=== PATIENT | female | born 1990 | race Caucasian/White ===

== ENCOUNTER 2017-12-26 13:01 | Emergency (ER) | payer BC ==
[2017-12-26 13:10] VITALS: BP 115/68
[2017-12-26] MEDS ORDERED: HYDROmorphone 0.5 MG/0.5 ML SYRINGE IVPUSH STA (13:23)
[2017-12-26] MEDS ORDERED: Ondansetron 4 MG/2 ML SDV IVPUSH ONE (13:23)
[2017-12-26] MEDS ORDERED: Sodium Chloride 0.9% 1,000 ML IV SCH (13:30)
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
[2017-12-26] MEDS ORDERED: Ibuprofen 600 MG Tab PO ONE (14:22)
[2017-12-26] MEDS ORDERED: Orphenadrine 100 MG Tab.ER PO STA (14:22)
== END 2017-12-26 14:50 | disposition home or self-care (01) ==
LOC: JD.ED 13:01
DX: M62.830 Muscle spasm of back (principal); F17.210 Nicotine dependence, cigarettes, uncomplicated; Z88.2 Allergy status to sulfonamides; Z88.1 Allergy status to other antibiotic agents
CPT/HCPCS: 81001; 81025; 96361; 96374; 96375; 99284; A9270; J1170; J2405; J7040

== ENCOUNTER 2020-09-16 04:35 | Observation (INO) | payer BC ==
[2020-09-16] MEDS ORDERED: Metoclopramide 10 MG/2 ML SDV IVPUSH ONE (04:56)
[2020-09-16] MEDS ORDERED: HYDROmorphone 1 MG/ML Syringe IVPUSH ONE (04:56)
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
[2020-09-16] MEDS ORDERED: Dextrose 5%-0.9% NaCl 1,000 ML IV SCH (05:00)
[2020-09-16] MEDS ORDERED: HYDROmorphone 0.5 MG/0.5 ML Syringe IVPUSH ONE (05:28)
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
[2020-09-16] MEDS ORDERED: Ibuprofen 400 MG Tab PO PRN (07:17)
[2020-09-16] MEDS ORDERED: Acetaminophen/oxyCODONE 325-5 MG Tab PO PRN ×2 (07:17)
[2020-09-16] MEDS ORDERED: HYDROmorphone 0.5 MG/0.5 ML Syringe IVPUSH PRN (07:17)
[2020-09-16] MEDS ORDERED: Ondansetron 4 MG Tab.DIS PO PRN (07:22)
--- NOTE | 2020-09-16 08:16 | US ---
Pelvic ultrasound: Multiple real-time images were obtained transvaginally. Comparison: Previous CT abdomen and pelvis exam performed earlier on the same day. Findings: Moderate amount of free fluid is seen within the pelvis. Uterus is anteverted. Several nabothian cysts are noted. Endometrial thickness is about 1.3 cm. Right ovary shows an irregular cyst measuring 2.9 cm which most likely represents a leaking collapsing cyst. Left ovary is unremarkable. Measurements: Uterus: Length 9.3 cm, AP height 3.7 cm, transverse width 4.8 cm Right ovary: 4.7 x 2.9 x 4.5 cm Left ovary: 4.0 x 2.3 x 2.4 cm Impression: 1. Moderate amount of free fluid within the pelvis. This free fluid is most likely due to a collapsing cyst within the right ovary. This cyst is irregular and measures about 2.9 cm in size. 2. Incidental nabothian cysts. 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
--- NOTE | 2020-09-16 08:19 | CT ---
CT abdomen and pelvis Technique: Multiple axial sections were obtained from above the dome of the diaphragm inferiorly through the pubic symphysis. Intravenous and oral contrast was not utilized. Reconstructed coronal and sagittal images were also obtained. Comparison: Prior CT abdomen and pelvis study of 10/11/13. Findings: There is free fluid seen within the pelvis. Minimal cystic change is noted within both ovaries which is most likely physiologic. Appendix is seen which is normal. Visualized lung bases showed nothing acute. Liver contains no focal abnormality. Spleen appears within normal limits. Adrenal glands show no nodule. No discrete abnormality is appreciated within the pancreas. Gallbladder contains no calcified gallstones. Right kidney shows a very small nonobstructing stone measuring less than 2 mm compatible with nonobstructing calculus. Kidneys show no ureteral dilatation or ureteral stone. Abdominal aorta shows no aneurysm. No retroperitoneal adenopathy or mesenteric abnormalities are appreciated. No bowel dilatation is seen. Bone window settings were reviewed which appear within normal limits for the patient's age. Impression: 1. Bilateral ovarian cyst most likely physiologic. Free fluid within the pelvis is noted. 2. Small less than 2 mm nonobstructing stone within the right kidney. No ureteral dilatation or ureteral stone is seen. 3. No other acute abnormality is seen. 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
[2020-09-16 12:07] VITALS: BP 100/44; PULSE 59
--- NOTE | 2020-09-16 15:41 | PCM.DCSUM1 ---
Discharge Summary - Hospital Course Free Text/Narrative:: 30 year old well known to me from care within her pregnancies presents to ER with severe abdominal/pelvic pain that started early this morning. She had the feeling of needing to void but was unable to x2. When pain did not improve she finally decided to come to the ER. In the ER she was given diluadid which helped somewhat with pain. CT scan without contrast was done for concern of renal lithiasis however only fluid in pelvis was found and and ultrasound confirmed that. Diagnosis: Stroke: No - Discharge Data Discharge Date: 09/16/20 Discharge Disposition: Home, Self-Care 01 Condition: Good - Referral to Home Health Primary Care Physician: PCP None - Discharge Diagnosis/Problem(s) (1) Acute abdominal pain SNOMED Code(s): 569069287 ICD Code: R10.9 - UNSPECIFIED ABDOMINAL PAIN Status: Acute Current Visit: Yes (2) Ovarian cyst SNOMED Code(s): 12574212 ICD Code: N83.209 - UNSPECIFIED OVARIAN CYST, UNSPECIFIED SIDE Status: Acute Current Visit: Yes (3) Ruptured ovarian cyst SNOMED Code(s): 66929030 ICD Code: N83.209 - UNSPECIFIED OVARIAN CYST, UNSPECIFIED SIDE Status: Acute Current Visit: Yes - Patient Summary/Data Complications: None Consults: None Hospital Course: Krystal Gonzalez was seen in the emergency department early in the morning of 09/16/2020 due to sudden onset and severe abdominal and pelvic pain. She had a CT scan done that showed fluid in the abdomen and pelvis with possible ruptured ovarian cyst. There was no evidence of renal lithiasis. She had a transvaginal ultrasound that showed a collapsed ovarian cyst with fluid around the uterus and pelvis. Patient was given Dilaudid in the emergency room that did not control her pain. She was kept for observation for pain control and monitoring of her symptoms. Patient was transferred to the [facility] and was able to eat breakfast. After breakfast she had a Percocet and this was able to control her pain. She states that after being monitored for approximately 6 hours after her Percocet her pain is very minimal. She is able to meet all of her daily activity requirements. She is able to get up and walk around with minimal difficulty. She is able to urinate without difficulty. She is tolerating regular diet without any nausea or vomiting. She states that her pain is minimal at this point. On exam her abdomen was mild to moderate tenderness in the left lower quadrant with mild tenderness in the right lower quadrant and suprapubic area without any rebound or guarding. Patient was felt to be stable at this time and was offered discharge home and she desired to be discharged home. Patient was discharged home in the afternoon of HD #1. - Patient Instructions Diet: Regular Diet as Tolerated Activity: Apply Ice, As Tolerated Driving: Do Not Drive (While taking narcotic medications are having significant pain) Showering/Bathing: May Shower Notify Provider of: Fever, Increased Pain, Swelling and Redness, Nausea and/or Vomiting - Discharge Plan *PRESCRIPTION DRUG MONITORING PROGRAM REVIEWED*: Yes *COPY OF PRESCRIPTION DRUG MONITORING REPORT IN PATIENT [place]: No Prescriptions/Med Rec: Docusate Sodium [Colace] 100 mg PO BID #60 capsule Ibuprofen 600 mg PO Q6H PRN #60 tablet PRN Reason: Pain Acetaminophen/oxyCODONE [Percocet 325-5 MG] 1 - 2 tab PO Q6H PRN #20 tablet PRN Reason: Pain Home Medications: Home Meds Acetaminophen/oxyCODONE [Percocet 325-5 MG] 1 - 2 tab PO Q6H PRN #20 tablet 09/16/20 [Rx] Docusate Sodium [Colace] 100 mg PO BID #60 capsule 09/16/20 [Rx] Ibuprofen 600 mg PO Q6H PRN #60 tablet 09/16/20 [Rx] Patient Handouts: Steps to Quit Smoking Forms: ED Department Discharge Referrals: Susan Mccall MD [Physician] - (Follow-up in 1 to 2 weeks for follow-up after being seen in the emergency room for ruptured ovarian cyst.) - Discharge Summary/Plan Comment DC Time >30 min.: No - Patient Data Vitals - Most Recent: Last Vital Signs Temp 36.7 C 09/16/20 11:43 Pulse 59 L 09/16/20 11:43 Resp 20 09/16/20 11:43 BP 100/44 L 09/16/20 11:43 Pulse Ox 99 09/16/20 11:43 Weight - Most Recent: 83.552 kg Lab Results - Last 24 hrs: Laboratory Results - last 24 hr 09/16/20 09/16/20 09/16/20 Range/Units 04:55 04:55 04:55 WBC 11.98 H (3.98-10.04) K/mm3 RBC 5.03 (3.98-5.22) M/mm3 Hgb 14.7 (11.2-15.7) gm/dl Hct 43.7 (34.1-44.9) % MCV 86.9 (79.4-94.8) fl MCH 29.2 (25.6-32.2) pg MCHC 33.6 (32.2-35.5) g/dl RDW Std Deviation 44.3 (36.4-46.3) fL Plt Count 237 (182-369) K/mm3 MPV 10.2 (9.4-12.3) fl Neut % (Auto) 65.2 (34.0-71.1) % Lymph % (Auto) 21.9 (19.3-51.7) % [place] % (Auto) 9.4 (4.7-12.5) % Eos % (Auto) 2.8 (0.7-5.8) Baso % (Auto) 0.5 (0.1-1.2) % Neut # (Auto) 7.82 H (1.56-6.13) K/mm3 Lymph # (Auto) 2.62 (1.18-3.74) K/mm3 [place] # (Auto) 1.13 H (0.24-0.36) K/mm3 Eos # (Auto) 0.33 (0.04-0.36) K/mm3 Baso # (Auto) 0.06 (0.01-0.08) K/mm3 Manual Slide Review Normal smear Sodium 143 (136-145) mEq/L Potassium 4.1 (3.5-5.1) mEq/L Chloride 107 (98-107) mEq/L Carbon Dioxide 23 (21-32) mEq/L Anion Gap 17.1 H (5-15) BUN 13 (7-18) mg/dL Creatinine 0.8 (0.55-1.02) mg/dL Est Cr Clr Drug Dosing TNP Estimated GFR (MDRD) > 60 (>60) mL/min BUN/Creatinine Ratio 16.3 (14-18) Glucose 99 (74-106) mg/dL Calcium 8.4 L (8.5-10.1) mg/dL Total Bilirubin 0.3 (0.2-1.0) mg/dL AST 14 L (15-37) U/L ALT 23 (14-59) U/L Alkaline Phosphatase 80 (46-116) U/L Total Protein 6.6 (6.4-8.2) g/dl Albumin 3.5 (3.4-5.0) g/dl Globulin 3.1 gm/dL Albumin/Globulin Ratio 1.1 (1-2) HCG, Quant < 1.0 mIU/mL Urine Color (Yellow) Urine Appearance (Clear) Urine pH (5.0-8.0) Ur Specific [place] (1.005-1.030) Urine Protein (Negative) Urine Glucose (UA) (Negative) Urine Ketones (Negative) Urine Occult Blood (Negative) Urine Nitrite (Negative) Urine Bilirubin (Negative) Urine Urobilinogen (0.2-1.0) Ur Leukocyte Esterase (Negative) Urine RBC (0-5) /hpf Urine WBC (0-5) /hpf Ur Squamous Epith Cells (0-5) /hpf Urine Bacteria (FEW) /hpf Urine Mucus (FEW) /hpf SARS-CoV-2 RNA (KRYSTAL) (NEGATIVE) Blood Type Gel Antibody Screen 09/16/20 09/16/20 09/16/20 Range/Units 04:55 05:15 05:38 WBC (3.98-10.04) K/mm3 RBC (3.98-5.22) M/mm3 Hgb (11.2-15.7) gm/dl Hct (34.1-44.9) % MCV (79.4-94.8) fl MCH (25.6-32.2) pg MCHC (32.2-35.5) g/dl RDW Std Deviation (36.4-46.3) fL Plt Count (182-369) K/mm3 MPV (9.4-12.3) fl Neut % (Auto) (34.0-71.1) % Lymph % (Auto) (19.3-51.7) % [place] % (Auto) (4.7-12.5) % Eos % (Auto) (0.7-5.8) Baso % (Auto) (0.1-1.2) % Neut # (Auto) (1.56-6.13) K/mm3 Lymph # (Auto) (1.18-3.74) K/mm3 [place] # (Auto) (0.24-0.36) K/mm3 Eos # (Auto) (0.04-0.36) K/mm3 Baso # (Auto) (0.01-0.08) K/mm3 Manual Slide Review Sodium (136-145) mEq/L Potassium (3.5-5.1) mEq/L Chloride (98-107) mEq/L Carbon Dioxide (21-32) mEq/L Anion Gap (5-15) BUN (7-18) mg/dL Creatinine (0.55-1.02) mg/dL Est Cr Clr Drug Dosing Estimated GFR (MDRD) (>60) mL/min BUN/Creatinine Ratio (14-18) Glucose (74-106) mg/dL Calcium (8.5-10.1) mg/dL Total Bilirubin (0.2-1.0) mg/dL AST (15-37) U/L ALT (14-59) U/L Alkaline Phosphatase (46-116) U/L Total Protein (6.4-8.2) g/dl Albumin (3.4-5.0) g/dl Globulin gm/dL Albumin/Globulin Ratio (1-2) HCG, Quant mIU/mL Urine Color Yellow (Yellow) Urine Appearance Slt cloudy H (Clear) Urine pH 6.0 (5.0-8.0) Ur Specific [place] > or = 1.030 (1.005-1.030) Urine Protein Negative (Negative) Urine Glucose (UA) Negative (Negative) Urine Ketones Negative (Negative) Urine Occult Blood Negative (Negative) Urine Nitrite Negative (Negative) Urine Bilirubin Negative (Negative) Urine Urobilinogen 0.2 (0.2-1.0) Ur Leukocyte Esterase Negative (Negative) Urine RBC 0-5 (0-5) /hpf Urine WBC 5-10 H (0-5) /hpf Ur Squamous Epith Cells 0-5 (0-5) /hpf Urine Bacteria Few (FEW) /hpf Urine Mucus Few (FEW) /hpf SARS-CoV-2 RNA (KRYSTAL) Negative (NEGATIVE) Blood Type AB POSITIVE Gel Antibody Screen Negative Med Orders - Current: Current Medications Hydromorphone HCl (Dilaudid) 0.2 mg IVPUSH Q2H PRN PRN Reason: Pain (severe 7-10) Dextrose/Sodium Chloride (Dextrose 5%-Normal Saline) 1,000 mls @ 150 mls/hr IV ASDIRECTED [facility] Last Admin: 09/16/20 05:02 Dose: 150 mls/hr Documented by: Ibuprofen (Motrin) 600 mg PO Q6H PRN PRN Reason: Pain (mild 1-3) Ondansetron HCl (Zofran Odt) 4 mg PO Q6H PRN PRN Reason: Nausea/Vomiting Oxycodone/Acetaminophen (Percocet 325-5 Mg) 1 tab PO Q4H PRN PRN Reason: Pain (moderate 4-6) Last Admin: 09/16/20 12:08 Dose: 1 tab Documented by: Oxycodone/Acetaminophen (Percocet 325-5 Mg) 2 tab PO Q4H PRN PRN Reason: Pain (severe 7-10) Discontinued Medications Hydromorphone HCl (Dilaudid) 1 mg IVPUSH ONETIME ONE Stop: 09/16/20 04:57 Last Admin: 09/16/20 05:02 Dose: 1 mg Documented by: Hydromorphone HCl (Dilaudid) 0.5 mg IVPUSH ONETIME ONE Stop: 09/16/20 05:29 Last Admin: 09/16/20 06:03 Dose: 0.5 mg Documented by: Metoclopramide HCl (Reglan) 7.5 mg IVPUSH ONETIME ONE Stop: 09/16/20 04:57 Last Admin: 09/16/20 05:02 Dose: 7.5 mg Documented by:
== END 2020-09-16 16:05 | disposition home or self-care (01) ==
LOC: JD.ED 04:35 → JD.MS 07:18
PROVIDERS: ADMIT Obstetrics & Gynecology; ATTEND Obstetrics & Gynecology
DX: N83.209 Unspecified ovarian cyst, unspecified side (principal); F17.210 Nicotine dependence, cigarettes, uncomplicated; Z20.822 Contact with and (suspected) exposure to COVID-19; Z79.899 Other long term (current) drug therapy; Z88.8 Allergy status to other drugs, medicaments and biological substances; Z98.890 Other specified postprocedural states
CPT/HCPCS: 36415; 74176; 76830; 80053; 81001; 84702; 85025; 86850; 86900; 86901; 87635; 96374; 96375; 96376; 99285; A9270; J1170; J2765; J7042; G0378; U0002

== ENCOUNTER 2022-11-13 07:22 | Emergency (ER) | payer BC ==
[2022-11-13] MEDS ORDERED: Sodium Chloride 0.9% 10 ML Syringe FLUSH PRN (07:54)
[2022-11-13] MEDS ORDERED: Sodium Chloride 0.9% 1,000 ML IV STA (07:54)
[2022-11-13 10:46] VITALS: BP 121/89; PULSE 89
== END 2022-11-13 10:40 | disposition home or self-care (01) ==
LOC: JD.ED 07:22
DX: O20.9 Hemorrhage in early pregnancy, unspecified (principal); O99.282 Endocrine, nutritional and metabolic diseases complicating pregnancy, second trimester; E86.0 Dehydration; O99.891 Other specified diseases and conditions complicating pregnancy; R19.7 Diarrhea, unspecified; Z3A.19 19 weeks gestation of pregnancy; Z88.1 Allergy status to other antibiotic agents; Z72.0 Tobacco use
CPT/HCPCS: 36415; 76815; 80053; 81001; 85025; 96360; 99284; J3490; J7030; 99283

== ENCOUNTER 2023-03-18 22:27 | Inpatient (IN) | payer BC ==
[2023-03-18] MEDS ORDERED: Sodium Chloride 0.9% 10 ML Syringe FLUSH PRN (23:00)
[2023-03-18] MEDS ORDERED: Nalbuphine 10 MG/0.5 ML Syringe IVPUSH PRN (23:00)
[2023-03-18] MEDS ORDERED: Oxytocin/Lactated Ringers 10 UNIT/1,000 ML BAG IV SCH (23:00)
[2023-03-18] MEDS ORDERED: Lidocaine 1% 50 ML MDV INJECT ONE (23:00)
[2023-03-18] MEDS ORDERED: Lactated Ringers 1,000 ML IV SCH (23:00)
[2023-03-18 23:16] LABS: BASOPHILS PERCENT AUTO 0.3 % (0.0-1.0); EOSINOPHILS ABSOLUTE AUTO 0.1 K/mm3 (0.0-0.4); EOSINOPHILS PERCENT AUTO 0.4 % (0.0-6.0); HEMATOCRIT 40.6 % (37.0-47.0); HEMOGLOBIN 14.4 gm/dl (12.0-16.0); IMMATURE GRAN ABSOLUTE AUTO 0.07 K/mm3 (0.00-0.05); IMMATURE GRAN PERCENT AUTO 0.5 % (0.0-0.4); LYMPHOCYTES ABSOLUTE AUTO 2.4 K/mm3 (1.0-4.8); LYMPHOCYTES PERCENT AUTO 16.6 % (24.0-44.0); MEAN CORPUSCULAR HEMOGLOBIN 31.2 pg (28.0-32.0); MEAN CORPUSCULAR HGB CONC 35.5 g/dl (32.0-36.0); MEAN CORPUSCULAR VOLUME 88.1 fl (83.0-99.0); MEAN PLATELET VOLUME 10.4 fl (9.4-12.3); MONOCYTES ABSOLUTE AUTO 0.9 K/mm3 (0.0-0.8); MONOCYTES PERCENT AUTO 6.4 % (0.0-8.0); NEUTROPHILS ABSOLUTE AUTO 10.8 K/mm3 (1.8-7.7); NEUTROPHILS PERCENT AUTO 75.8 % (41.0-71.0); PLATELET COUNT,PLT 236 K/mm3 (150-400); RED BLOOD CELL COUNT 4.61 M/mm3 (4.10-5.30); WHITE BLOOD CELL COUNT,WBC 14.19 K/mm3 (3.9-11.3)
[2023-03-18] MEDS ORDERED: Oxytocin/Lactated Ringers 10 UNIT/1,000 ML BAG IV ONE (23:26)
[2023-03-19] MEDS ORDERED: Benzocaine/Menthol 20%-0.5% Spray 78 GM Cannister TOP PRN (01:33)
[2023-03-19] MEDS ORDERED: Witch Hazel Medicated Pads 40/Jar TOP PRN (01:33)
[2023-03-19] MEDS ORDERED: Docusate Sodium 100 MG Cap PO PRN (01:33)
[2023-03-19] MEDS ORDERED: Acetaminophen 325 MG Tab PO PRN (01:33)
[2023-03-19] MEDS: Ibuprofen 600 MG Tab PO PRN ×3 (04:16→19:48)
[2023-03-19] MEDS ORDERED: Sodium Chloride 0.9% 10 ML Syringe FLUSH SCH (09:00)
[2023-03-20 09:07] VITALS: BP 122/85; PULSE 105
== END 2023-03-20 09:15 | disposition home or self-care (01) | DRG 560 ==
LOC: JD.OBCHECK 22:27 → JD.OB 22:30 → JD.OBCHECK 22:59 → JD.OB 23:00 → OBSVTOIN 23:24 → JD.OB 23:25
PROVIDERS: ADMIT Obstetrics & Gynecology; ATTEND Obstetrics & Gynecology
PROC: 10E0XZZ Delivery of Products of Conception, External Approach (ICD-10-PCS; principal; 2023-03-18)
DX: O99.333 Smoking (tobacco) complicating pregnancy, third trimester (principal); Z3A.36 36 weeks gestation of pregnancy; Z37.0 Single live birth; F17.200 Nicotine dependence, unspecified, uncomplicated; Z88.2 Allergy status to sulfonamides; Z88.8 Allergy status to other drugs, medicaments and biological substances
CPT/HCPCS: 36415; 59025; 59409; 84112; 85025; 86592; 86850; 86900; 86901; A9270-GY; J2590; J7120

== ENCOUNTER 2023-06-29 17:20 | Emergency (ER) | payer BC ==
[2023-06-29] MEDS ORDERED: HYDROmorphone 1 MG/ML Syringe IM ONE ×2 (18:32→19:23)
[2023-06-29] MEDS ORDERED: Ketorolac 60 MG/2 ML SDV IM ONE (18:32)
[2023-06-29 20:44] VITALS: BP 141/80; PULSE 80
== END 2023-06-29 20:50 | disposition home or self-care (01) ==
LOC: JD.ED 17:20
DX: S82.61XA Displaced fracture of lateral malleolus of right fibula, initial encounter for closed fracture (principal); F17.210 Nicotine dependence, cigarettes, uncomplicated; Z88.2 Allergy status to sulfonamides; Z86.73 Personal history of transient ischemic attack (TIA), and cerebral infarction without residual deficits; X50.1XXA Overexertion from prolonged static or awkward postures, initial encounter
CPT/HCPCS: 29515; 73610; 96372; 99283; J1170; J1885

== ENCOUNTER 2023-07-10 08:15 | Day surgery (SDC) | payer BC ==
[~2023-07-10 08:15] MED LIST: Dexamethasone 4 MG/ML 5 ML MDV ONE; Lactated Ringers 1,000 ML IV SCH; Lidocaine 1% 6 ML ONE; Ropivacaine 0.5% 5 MG/ML 30 ML SDV ONE; Sodium Chloride 0.9% 10 ML Syringe FLUSH PRN; Sodium Chloride 0.9% 10 ML Syringe FLUSH SCH; dexmedeTOMIDine HCl 200 MCG/2 ML SDV ONE
[2023-07-10] MEDS ORDERED: Midazolam 1 MG/ML 2 ML SDV ONE ×2 (09:02→09:47)
[2023-07-10] MEDS ORDERED: fentaNYL 100 MCG/2 ML SDV ONE ×2 (09:03→09:47)
[2023-07-10] MEDS ORDERED: EPINEPHrine 1 MG/ML SDV ONE (09:40)
[2023-07-10] MEDS ORDERED: Propofol 200 MG/20 ML SDV ONE (09:46)
[2023-07-10] MEDS ORDERED: Lactated Ringers 1,000 ML ONE (09:54)
[2023-07-10] MEDS ORDERED: ceFAZolin 2 GM Vial ONE (09:55)
[2023-07-10] MEDS ORDERED: Ondansetron 4 MG/2 ML SDV ONE (09:56)
[2023-07-10 13:40] VITALS: BP 89/55; PULSE 68
== END 2023-07-10 13:10 | disposition home or self-care (01) ==
LOC: JD.SDS 08:15
PROVIDERS: ATTEND Orthopaedic Surgery
DX: S82.841A Displaced bimalleolar fracture of right lower leg, initial encounter for closed fracture (principal); F17.200 Nicotine dependence, unspecified, uncomplicated; S82.62XA Displaced fracture of lateral malleolus of left fibula, initial encounter for closed fracture; S93.431A Sprain of tibiofibular ligament of right ankle, initial encounter; Z88.8 Allergy status to other drugs, medicaments and biological substances; Z79.899 Other long term (current) drug therapy
CPT/HCPCS: 76000; 81025; C1713; C1776; J0171; J0690; J1100; J2250; J2405; J2704; J2795; J3010; J7120; J3490